=== PATIENT | female | born 1960 | race Caucasian/White ===

== ENCOUNTER 2022-04-18 08:48 | Outpatient (CLI) | payer BC | END 2022-04-18 08:49 | disposition home or self-care (01) | LOC: CSHMAMMO 08:48 | PROVIDERS: ATTEND Obstetrics & Gynecology | DX: Z12.31 Encounter for screening mammogram for malignant neoplasm of breast (principal) | CPT/HCPCS: 77063; 77067 ==

== ENCOUNTER 2022-08-28 06:50 | Day surgery (SDC) | payer BC ==
[2022-08-24 14:41] VITALS: BMI 30.1
[2022-08-28] MEDS ORDERED: Lidocaine 1% PF 5 ML VIAL ONE (08:15)
[2022-08-28] MEDS ORDERED: PROPOFOL 40 ML ONE (08:15)
== END 2022-08-28 09:18 | disposition home or self-care (01) ==
LOC: CSHSDC 06:50
PROVIDERS: ATTEND Surgery
PROC: 0DJD8ZZ Inspection of Lower Intestinal Tract, Via Natural or Artificial Opening Endoscopic (ICD-10-PCS; principal; 2022-08-28)
DX: Z12.11 Encounter for screening for malignant neoplasm of colon (principal); K57.30 Diverticulosis of large intestine without perforation or abscess without bleeding; K64.8 Other hemorrhoids
CPT/HCPCS: J2704

== ENCOUNTER 2025-07-07 15:00 | Outpatient (CLI) | payer BC | END 2025-07-07 15:01 | disposition home or self-care (01) | LOC: CSHMAMMO 15:00 | PROVIDERS: ATTEND Obstetrics & Gynecology | DX: Z12.31 Encounter for screening mammogram for malignant neoplasm of breast (principal) | CPT/HCPCS: 77063; 77067 ==